=== PATIENT | female | born 1955 | race Caucasian/White ===

== ENCOUNTER → 2016-11-25 | Outpatient (CLI) | payer BC | LOC: MC.RAD 13:52 | DX: Z12.31 Encounter for screening mammogram for malignant neoplasm of breast (principal) ==

== ENCOUNTER → 2020-10-21 | Outpatient (CLI) | payer BC | LOC: MC.RAD 13:43 | DX: Z12.31 Encounter for screening mammogram for malignant neoplasm of breast (principal) ==

== ENCOUNTER → 2024-03-13 | Outpatient (CLI) | payer MEDICARE | LOC: MC.RAD 10:34 | DX: Z12.31 Encounter for screening mammogram for malignant neoplasm of breast (principal) ==